=== PATIENT | male | born 1930 | race African-American/Black ===

== ENCOUNTER 2018-03-29 15:56 | Inpatient (IN) | payer MEDICARE, MEDICAID, OTHER ==
[2018-03-29 17:03] LABS: WHITE BLOOD COUNT 10.5 10^3/ul (4.8-10.8)
[2018-03-29 17:03] LABS: ABNORMAL IP MESSAGE 1; MEAN CORPUSCULAR HEMOGLOBIN 21.6 pg (29.0-33.0); MEAN CORPUSCULAR HGB CONC 29.5 g/dl (32.0-37.0); MEAN CORPUSCULAR VOLUME 73.2 fl (82.0-101.0); PLATELET COUNT 112 10^3/UL (140-415); POSITIVE DIFF @See below; RED BLOOD COUNT 2.87 10^6/ul (4.70-6.10); RED CELL DISTRIBUTION WIDTH 17.6 % (11.5-14.5)
[2018-03-29 17:07] LABS: ADD MAN DIFF? YES; HEMOGLOBIN 6.2 g/dl (14.0-18.0); PATH REVIEW? YES
[2018-03-29] MEDS: SODIUM CHLORIDE 0.9% 1L BAG IV* (17:07)
[2018-03-29] MEDS: CEFEPIME 2GM/50 ML (PMX) 50 ML IVPB (17:07)
[2018-03-29 17:17] LABS: INR 1.23; PROTIME 15.7 Sec (11.9-14.9); PT RATIO 1.2
[2018-03-29 17:18] LABS: PARTIAL THROMBOPLASTIN TIME 43.9 Sec (25.0-35.0)
[2018-03-29 17:24] LABS: ALANINE AMINOTRANSFERASE 22 IU/L (13-69); ALBUMIN 3.6 g/dl (3.3-4.9); ALBUMIN/GLOBULIN RATIO 1.05; ALKALINE PHOSPHATASE 97 IU/L (42-121); AMYLASE 43 U/L (11-123); ANION GAP 14 (8-16); ASPARTATE AMINO TRANSFERASE 28 IU/L (15-46); BILIRUBIN,INDIRECT 0.5 mg/dl (0-1.1); BILIRUBIN,TOTAL 0.5 mg/dl (0.2-1.3); BLOOD UREA NITROGEN 35 mg/dl (7-20); CALCIUM 8.6 mg/dl (8.4-10.2); CARBON DIOXIDE 23 mmol/L (21-31); CHLORIDE 110 mmol/L (97-110); CREATININE 2.13 mg/dl (0.61-1.24); GLUCOSE 152 mg/dl (70-220); LIPASE 41 U/L (23-300); POTASSIUM 4.1 mmol/L (3.5-5.1); SODIUM 143 mmol/L (135-144)
[2018-03-29 17:35] LABS: B-TYPE NATRIURETIC PEPTIDE 10600 PG/ML (0-450)
[2018-03-29 17:39] LABS: ADD UMIC YES; TROPONIN-I 0.553 ng/ml (0.000-0.120); UR ASCORBIC ACID NEGATIVE (NEGATIVE); UR BACTERIA MANY /HPF (NONE SEEN); UR BILIRUBIN (Dip) NEGATIVE (NEGATIVE); UR BLOOD (Dip) 2+ mg/dL (NEGATIVE); UR CLARITY CLOUDY (CLEAR); UR COLOR YELLOW (YELLOW); UR GLUCOSE (Dip) NEGATIVE (NEGATIVE); UR KETONES (Dip) NEGATIVE (NEGATIVE); UR LEUKOCYTE ESTERASE (Dip) 3+ Leu/ul (NEGATIVE); UR MUCUS FEW /HPF (NONE SEEN); UR NITRITE (Dip) POSITIVE (NEGATIVE); UR RBC 10 /HPF (0-5); UR SPECIFIC GRAVITY (Dip) 1.014 (1.003-1.030); UR TOTAL PROTEIN (Dip) 2+ mg/dl (NEGATIVE); UR UROBILINOGEN (Dip) NEGATIVE (NEGATIVE); UR WBC > 182 /HPF (0-5)
[2018-03-29 17:40] LABS: LACTIC ACID 2.5 mmol/L (0.5-2.0)
[2018-03-29 17:44] LABS: ANISOCYTOSIS 1+ (0-0); BAND NEUTROPHILS #M 0.7 10^3/ul (0.0-0.6); BAND NEUTROPHILS % (M) 7 % (0-4); LYMPHOCYTES #M 1.6 10^3/ul (0.8-2.9); LYMPHOCYTES % (M) 16 % (15-51); MICROCYTOSIS 1+ (0-0); MONOCYTE #M 0.3 10^3/ul (0.3-0.9); MONOCYTES % (M) 3 % (0-11); PLATELET ESTIMATE DECREASED; POIKILOCYTOSIS 2+ (0-0); POLYCHROMASIA 3+ (0-0); SEG NEUT #M 7.8 10^3/ul (1.6-7.5); SEGMENTED NEUTROPHILS (M) % 74 % (39-77); SMUDGE%M 2 % (0-0)
[2018-03-29] MEDS: VANCOMYCIN 1 GM (PMX) 250 ML IVPB (17:45)
[2018-03-29 17:52] LABS: IRON 24 ug/dl (35-150)
[2018-03-29 18:00] LABS: LACTATE DEHYDROGENASE 644 IU/L (313-618)
[2018-03-29 18:01] LABS: % IRON SATURATION 7 % SAT (22-52); TOTAL IRON BINDING CAPACITY 337 ug/dl (241-421)
[2018-03-29] MEDS: FUROSEMIDE 40 MG INJ IV (18:14)
[2018-03-29 18:37] LABS: FERRITIN 52.2 ng/ml (11.1-264.0)
[2018-03-29] MEDS: ALBUTEROL 0.083% (NEB) 2.5 MG/3 ML AMP NEB ×2 (18:52→19:48)
[2018-03-29] MEDS: IPRATROPIUM (NEB) 0.5 MG/2.5 ML AMP NEB ×2 (18:52→19:48)
[2018-03-29] MEDS ORDERED: ONDANSETRON 4 MG INJ IV ×2 (19:00→19:30)
[2018-03-29] MEDS ORDERED: ACETAMINOPHEN 325 MG TAB PO ×2 (19:00→19:30)
[2018-03-29 19:26] LABS: LACTIC ACID 1.6 mmol/L (0.5-2.0)
[2018-03-29] MEDS ORDERED: BISACODYL (EC) 5 MG TAB PO (19:30)
[2018-03-29] MEDS ORDERED: NACL 0.9% 3 ML SYG IV (19:30)
[2018-03-29] MEDS ORDERED: ACETAMINOPHEN 650 MG SUPP PR (19:30)
[2018-03-29] MEDS ORDERED: DOCUSATE SODIUM 100 MG CAP PO (19:30)
[2018-03-29] MEDS ORDERED: MAGNESIUM HYDROXIDE 30ML CUP PO (19:30)
[2018-03-29] MEDS: ACETAMINOPHEN 500 MG TAB PO (19:35)
[2018-03-29] MEDS: IBUPROFEN 800 MG TAB PO (19:35)
[2018-03-29] MEDS: DIPHENHYDRAMINE 50 MG INJ IV (19:58)
[2018-03-29] MEDS: LORAZEPAM 2 MG INJ IV (20:19)
[2018-03-29 20:29] LABS: CREATINE KINASE 164 IU/L (23-200)
[2018-03-29] MEDS: LABETALOL HCL 20MG INJ IV (20:30)
[2018-03-29 20:36] LABS: IRON 20 ug/dl (35-150)
[2018-03-29 20:42] LABS: CK INDEX 0.6
[2018-03-29 20:45] LABS: % IRON SATURATION 6 % SAT (22-52); TOTAL IRON BINDING CAPACITY 338 ug/dl (241-421)
[2018-03-29 20:47] LABS: CK-MB 1.02 ng/ml (0.0-2.4); TROPONIN-I 0.536 ng/ml (0.000-0.120)
[2018-03-29] MEDS: PREGABALIN 75 MG CAP PO (21:00)
[2018-03-29 21:02] LABS: ADD UMIC YES; UR ASCORBIC ACID NEGATIVE (NEGATIVE); UR BACTERIA FEW /HPF (NONE SEEN); UR BILIRUBIN (Dip) NEGATIVE (NEGATIVE); UR BLOOD (Dip) 1+ mg/dL (NEGATIVE); UR CLARITY CLEAR (CLEAR); UR COLOR STRAW (YELLOW); UR GLUCOSE (Dip) NEGATIVE (NEGATIVE); UR KETONES (Dip) NEGATIVE (NEGATIVE); UR LEUKOCYTE ESTERASE (Dip) 2+ Leu/ul (NEGATIVE); UR NITRITE (Dip) NEGATIVE (NEGATIVE); UR RBC 3 /HPF (0-5); UR SPECIFIC GRAVITY (Dip) 1.006 (1.003-1.030); UR TOTAL PROTEIN (Dip) NEGATIVE (NEGATIVE); UR UROBILINOGEN (Dip) NEGATIVE (NEGATIVE); UR WBC 54 /HPF (0-5)
[2018-03-29 21:17] LABS: FERRITIN 53.7 ng/ml (11.1-264.0)
[2018-03-29 21:49] LABS: LACTIC ACID 5.7 mmol/L (0.5-2.0)
[2018-03-29] MEDS: SOD CHLORIDE 0.45% 1,000 ML IV (22:58)
[2018-03-29] MEDS: PIPER-TAZO 3.375 GM IV (PMX) 100 ML IVPB (22:58)
[2018-03-29 23:41] LABS: POST-TRANSFUSION BILIRUBIN 0.6 mg/dl
[2018-03-29 23:41] LABS: PRETRANSFUSION BILIRUBIN 0.5 mg/dl
[2018-03-29] MEDS: ATORVASTATIN 40 MG TAB PO (23:52)
[2018-03-30 00:04] LABS: LACTIC ACID 1.6 mmol/L (0.5-2.0)
[2018-03-30] MEDS: RANOLAZINE (SR) 500 MG TAB PO ×3 (01:03→21:38)
[2018-03-30 02:13] LABS: CREATINE KINASE 237 IU/L (23-200)
[2018-03-30 02:14] LABS: LACTIC ACID 1.4 mmol/L (0.5-2.0)
[2018-03-30 02:26] LABS: CK INDEX 3.6
[2018-03-30 02:49] LABS: CK-MB 8.64 ng/ml (0.0-2.4)
[2018-03-30 05:45] LABS: WHITE BLOOD COUNT 10.2 10^3/ul (4.8-10.8)
[2018-03-30 05:45] LABS: ABNORMAL IP MESSAGE 1; HEMATOCRIT 18.1 % (42.0-52.0); MEAN CORPUSCULAR HEMOGLOBIN 21.7 pg (29.0-33.0); MEAN CORPUSCULAR HGB CONC 29.8 g/dl (32.0-37.0); MEAN CORPUSCULAR VOLUME 72.7 fl (82.0-101.0); MEAN PLATELET VOLUME 12.9 fl (7.4-10.4); PLATELET COUNT 102 10^3/UL (140-415); POSITIVE DIFF @See below; RED BLOOD COUNT 2.49 10^6/ul (4.70-6.10); RED CELL DISTRIBUTION WIDTH 17.6 % (11.5-14.5)
[2018-03-30] MEDS: PANTOPRAZOLE 40 MG INJ IV (05:46)
[2018-03-30] MEDS: PIPER-TAZO 3.375 GM IV (PMX) 100 ML IVPB ×3 (05:46→21:38)
[2018-03-30 05:51] LABS: ADD MAN DIFF? YES; HEMOGLOBIN 5.4 g/dl (14.0-18.0)
[2018-03-30 05:59] LABS: ALANINE AMINOTRANSFERASE 19 IU/L (13-69); ALBUMIN 3.1 g/dl (3.3-4.9); ALKALINE PHOSPHATASE 80 IU/L (42-121); ANION GAP 15 (8-16); ASPARTATE AMINO TRANSFERASE 43 IU/L (15-46); BILIRUBIN,INDIRECT 0.4 mg/dl (0-1.1); BILIRUBIN,TOTAL 0.4 mg/dl (0.2-1.3); BLOOD UREA NITROGEN 34 mg/dl (7-20); CALCIUM 7.8 mg/dl (8.4-10.2); CARBON DIOXIDE 24 mmol/L (21-31); CHLORIDE 110 mmol/L (97-110); CREATININE 2.16 mg/dl (0.61-1.24); GLUCOSE 161 mg/dl (70-220); POTASSIUM 4.1 mmol/L (3.5-5.1); SODIUM 145 mmol/L (135-144); TOTAL PROTEIN 6.2 g/dl (6.1-8.1)
[2018-03-30 06:02] LABS: CHOLESTEROL 68 mg/dl (100-200)
[2018-03-30 06:02] LABS: HDL CHOLESTEROL 17 mg/dl (31-75); LDL CHOLESTEROL,CALCULATED 14 mg/dl; TRIGLYCERIDES 183 mg/dl (0-149)
[2018-03-30] MEDS: METHYLPREDNISOLONE 40 MG INJ IV (06:43)
[2018-03-30] MEDS: DIPHENHYDRAMINE 50 MG INJ IV (06:43)
[2018-03-30] MEDS: ACETAMINOPHEN 325 MG TAB PO (06:44)
[2018-03-30 07:51] LABS: IMMEDIATE SPIN CROSSMATCH 1 4
[2018-03-30 07:55] LABS: ANISOCYTOSIS 2+ (0-0); BAND NEUTROPHILS #M 1.2 10^3/ul (0.0-0.6); BAND NEUTROPHILS % (M) 12 % (0-4); BASOPHIL #M 0.1 10^3/ul (0.0-0.0); BASOPHILS % (M) 1 % (0-2); LYMPHOCYTES #M 1.5 10^3/ul (0.8-2.9); LYMPHOCYTES % (M) 15 % (15-51); MICROCYTOSIS 2+ (0-0); MONOCYTE #M 0.1 10^3/ul (0.3-0.9); MONOCYTES % (M) 1 % (0-11); PLATELET ESTIMATE DECREASED; POIKILOCYTOSIS 3+ (0-0); POLYCHROMASIA 3+ (0-0); SEG NEUT #M 7.4 10^3/ul (1.6-7.5); SEGMENTED NEUTROPHILS (M) % 71 % (39-77); SMUDGE%M 2 % (0-0)
[2018-03-30] MEDS: PREGABALIN 75 MG CAP PO ×2 (08:50→21:38)
[2018-03-30] MEDS: DUTASTERIDE 0.5 MG CAP PO (08:50)
[2018-03-30] MEDS: CLOPIDOGREL 75 MG TAB PO (08:50)
[2018-03-30] MEDS: METOPROLOL (XL) 100 MG TAB PO (08:51)
[2018-03-30] MEDS ORDERED: GLUCAGON 1 MG INJ IM (10:30)
[2018-03-30] MEDS ORDERED: GLUCOSE GEL 15 GRAM TUBE PO ×2 (10:30)
[2018-03-30] MEDS ORDERED: DEXTROSE 50% 50 ML SYRINGE IV ×2 (10:30)
[2018-03-30] MEDS ORDERED: GLUCOSE GEL 15 GRAM TUBE BUCCAL (10:30)
[2018-03-30] MEDS: INSULIN ASPART [NOVOLOG] 3 ML PEN SC ×3 (13:24→21:42)
[2018-03-30 16:02] LABS: HEMATOCRIT 24.2 % (42.0-52.0); HEMOGLOBIN 7.6 g/dl (14.0-18.0)
[2018-03-30 16:32] LABS: CK-MB 6.95 ng/ml (0.0-2.4)
[2018-03-30 16:44] LABS: CK INDEX 4.3; CREATINE KINASE 162 IU/L (23-200)
[2018-03-30 19:18] LABS: OCCULT BLOOD STOOL NEGATIVE (NEGATIVE)
[2018-03-30] MEDS: SOD CHLORIDE 0.45% 1,000 ML IV (19:46)
[2018-03-30] MEDS: ATORVASTATIN 40 MG TAB PO (21:38)
[2018-03-31] MEDS: ACCU-CHEK XX (02:29)
[2018-03-31 05:36] LABS: ADD MAN DIFF? NO
[2018-03-31 05:40] LABS: ABNORMAL IP MESSAGE 1; BASOPHILS % 0.1 % (0.0-2.0); HEMATOCRIT 24.6 % (42.0-52.0); HEMOGLOBIN 7.8 g/dl (14.0-18.0); LYMPHOCYTES # 1.3 10^3/ul (0.8-2.9); LYMPHOCYTES % 11.2 % (15.0-51.0); MEAN CORPUSCULAR HEMOGLOBIN 23.6 pg (29.0-33.0); MEAN CORPUSCULAR HGB CONC 31.7 g/dl (32.0-37.0); MEAN CORPUSCULAR VOLUME 74.5 fl (82.0-101.0); MEAN PLATELET VOLUME 12.9 fl (7.4-10.4); MONOCYTE # 0.9 10^3/ul (0.3-0.9); MONOCYTES % 7.5 % (0.0-11.0); NEUTROPHIL # 9.3 10^3/ul (1.6-7.5); NEUTROPHILS % 78.2 % (39.0-77.0); NUCLEATED RED BLOOD CELLS% 0.2 /100WBC (0.0-0.0); PLATELET COUNT 120 10^3/UL (140-415); POSITIVE DIFF @See below; RED CELL DISTRIBUTION WIDTH 19.1 % (11.5-14.5)
[2018-03-31 05:40] LABS: WHITE BLOOD COUNT 11.9 10^3/ul (4.8-10.8)
[2018-03-31 05:42] LABS: RETICULOCYTE RBC 3.27
[2018-03-31 05:42] LABS: RETICULOCYTE COUNT # 0.011 X10^6 (0.020-0.110); RETICULOCYTE COUNT % 0.3 % (0.5-1.5)
[2018-03-31] MEDS: PANTOPRAZOLE 40 MG INJ IV ×2 (06:04→17:24)
[2018-03-31] MEDS: PIPER-TAZO 3.375 GM IV (PMX) 100 ML IVPB ×3 (06:04→21:17)
[2018-03-31 06:14] LABS: PHOSPHORUS 3.5 mg/dl (2.5-4.9)
[2018-03-31 06:14] LABS: MAGNESIUM 2.6 mg/dl (1.7-2.5)
[2018-03-31 06:15] LABS: ANION GAP 13 (8-16); BLOOD UREA NITROGEN 38 mg/dl (7-20); CARBON DIOXIDE 19 mmol/L (21-31); CHLORIDE 115 mmol/L (97-110); CREATININE 1.65 mg/dl (0.61-1.24); GLUCOSE 164 mg/dl (70-220); POTASSIUM 4.2 mmol/L (3.5-5.1); SODIUM 143 mmol/L (135-144)
[2018-03-31 06:33] LABS: IRON 33 ug/dl (35-150)
[2018-03-31 06:40] LABS: CK INDEX 3.6; CREATINE KINASE 92 IU/L (23-200)
[2018-03-31 06:42] LABS: % IRON SATURATION 10 % SAT (22-52); TOTAL IRON BINDING CAPACITY 318 ug/dl (241-421)
[2018-03-31 06:43] LABS: CK-MB 3.31 ng/ml (0.0-2.4)
[2018-03-31 06:57] LABS: FERRITIN 63.5 ng/ml (11.1-264.0)
[2018-03-31 07:27] LABS: FOLATE 14.3 ng/ml (2.8-20.0)
[2018-03-31] MEDS: METOPROLOL (XL) 100 MG TAB PO (09:45)
[2018-03-31] MEDS: DUTASTERIDE 0.5 MG CAP PO (09:45)
[2018-03-31] MEDS: PREGABALIN 75 MG CAP PO ×2 (09:45→21:17)
[2018-03-31] MEDS: RANOLAZINE (SR) 500 MG TAB PO ×2 (09:46→21:17)
[2018-03-31] MEDS: INSULIN ASPART [NOVOLOG] 3 ML PEN SC ×4 (09:47→21:00)
[2018-03-31] MEDS: SOD CHLORIDE 0.45% 1,000 ML IV (10:05)
[2018-03-31 17:13] LABS: TRANSFERRIN 218 mg/dL (188-341)
[2018-03-31] MEDS: SOD FERRIC GLUC COMPLX 125 MG in SOD CHLORIDE 0.9% 100 ML IVPB (17:24)
[2018-03-31 17:51] LABS: THYROID STIMULATING HORMONE 0.296 MIU/L (0.465-4.680)
[2018-03-31 18:39] LABS: HAAIG REFLEX REFLEX FILED
[2018-03-31 19:35] LABS: HEPATITIS B SURFACE ANTIGEN NEGATIVE (NEGATIVE)
[2018-03-31 19:53] LABS: HEPATITIS B CORE ANTIBODY REACTIVE (NEGATIVE); HEPATITIS C VIRAL ANTIBODY NEGATIVE (NEGATIVE)
[2018-03-31 19:57] LABS: HIV 1&2 ANTIBODY NEGATIVE (NEGATIVE)
[2018-03-31] MEDS: ATORVASTATIN 40 MG TAB PO (21:17)
[2018-04-01] MEDS: ACCU-CHEK XX (02:00)
[2018-04-01] MEDS: PANTOPRAZOLE 40 MG INJ IV ×2 (05:34→17:11)
[2018-04-01] MEDS: PIPER-TAZO 3.375 GM IV (PMX) 100 ML IVPB ×2 (05:35→13:52)
[2018-04-01 05:55] LABS: ABNORMAL IP MESSAGE 1; HEMATOCRIT 27.2 % (42.0-52.0); HEMOGLOBIN 8.4 g/dl (14.0-18.0); MEAN CORPUSCULAR HEMOGLOBIN 23.6 pg (29.0-33.0); MEAN CORPUSCULAR HGB CONC 30.9 g/dl (32.0-37.0); MEAN CORPUSCULAR VOLUME 76.4 fl (82.0-101.0); MEAN PLATELET VOLUME 12.1 fl (7.4-10.4); NUCLEATED RED BLOOD CELLS% 0.5 /100WBC (0.0-0.0); PLATELET COUNT 159 10^3/UL (140-415); POSITIVE DIFF @See below; RED BLOOD COUNT 3.56 10^6/ul (4.70-6.10); RED CELL DISTRIBUTION WIDTH 19.6 % (11.5-14.5)
[2018-04-01 05:55] LABS: WHITE BLOOD COUNT 13.1 10^3/ul (4.8-10.8)
[2018-04-01 05:58] LABS: ADD MAN DIFF? YES
[2018-04-01 06:15] LABS: PHOSPHORUS 3.2 mg/dl (2.5-4.9)
[2018-04-01 06:15] LABS: ANION GAP 9 (8-16); BLOOD UREA NITROGEN 32 mg/dl (7-20); CALCIUM 8.3 mg/dl (8.4-10.2); CARBON DIOXIDE 24 mmol/L (21-31); CHLORIDE 115 mmol/L (97-110); GLUCOSE 121 mg/dl (70-220); MAGNESIUM 2.6 mg/dl (1.7-2.5); POTASSIUM 4.4 mmol/L (3.5-5.1); SODIUM 144 mmol/L (135-144)
[2018-04-01 07:10] LABS: ANISOCYTOSIS 1+ (0-0); BAND NEUTROPHILS #M 0.9 10^3/ul (0.0-0.6); BAND NEUTROPHILS % (M) 7 % (0-4); BURR CELLS 1+ (0-0); EOSINOPHILS % (M) 4 % (0-7); ERYTHROBLAST% (NRBC) (M) 3 % (0-0); GIANT THROMBO% (M) 1 % (0-0); LYMPHOCYTES #M 2.4 10^3/ul (0.8-2.9); LYMPHOCYTES % (M) 19 % (15-51); MICROCYTOSIS 1+ (0-0); MONOCYTES % (M) 16 % (0-11); MYELOCYTES #M 0.2 10^3/ul (0.0-0.0); MYELOCYTES % (M) 2 % (0-0); OVALOCYTES 1+ (0-0); PLATELET ESTIMATE NORMAL; POIKILOCYTOSIS 3+ (0-0); POLYCHROMASIA 1+ (0-0); SEG NEUT #M 6.9 10^3/ul (1.6-7.5); SEGMENTED NEUTROPHILS (M) % 52 % (39-77); SPHEROCYTES 1+ (0-0)
[2018-04-01] MEDS: INSULIN ASPART [NOVOLOG] 3 ML PEN SC ×4 (07:35→20:59)
[2018-04-01] MEDS: RANOLAZINE (SR) 500 MG TAB PO ×2 (08:09→20:57)
[2018-04-01] MEDS: METOPROLOL (XL) 100 MG TAB PO (08:09)
[2018-04-01] MEDS: DUTASTERIDE 0.5 MG CAP PO (08:09)
[2018-04-01] MEDS: PREGABALIN 75 MG CAP PO ×2 (08:09→20:56)
[2018-04-01] MEDS: CEFTRIAXONE 1 GM/50 ML (PMX) 50 ML IVPB (16:10)
[2018-04-01] MEDS: SOD FERRIC GLUC COMPLX 125 MG in SOD CHLORIDE 0.9% 100 ML IVPB (17:11)
[2018-04-01 17:36] LABS: HAPTOGLOBIN 324 mg/dL (43-212)
[2018-04-01] MEDS: SOD CHLORIDE 0.45% 1,000 ML IV (17:56)
[2018-04-01] MEDS: ATORVASTATIN 40 MG TAB PO (20:57)
[2018-04-02] MEDS: ACCU-CHEK XX (02:00)
[2018-04-02 05:11] LABS: PROTEIN, TOTAL 6.2 g/dL (6.1-8.1)
[2018-04-02] MEDS: PANTOPRAZOLE 40 MG INJ IV ×2 (05:26→17:07)
[2018-04-02] MEDS: INSULIN ASPART [NOVOLOG] 3 ML PEN SC ×4 (07:55→20:48)
[2018-04-02 08:18] LABS: ADD MAN DIFF? NO
[2018-04-02 08:25] LABS: ABNORMAL IP MESSAGE 1; BASOPHILS % 0.3 % (0.0-2.0); EOSINOPHILS # 0.2 10^3/ul (0.0-0.5); EOSINOPHILS % 1.8 % (0.0-7.0); HEMATOCRIT 27.3 % (42.0-52.0); HEMOGLOBIN 8.5 g/dl (14.0-18.0); LYMPHOCYTES # 1.9 10^3/ul (0.8-2.9); LYMPHOCYTES % 15.4 % (15.0-51.0); MEAN CORPUSCULAR HEMOGLOBIN 23.2 pg (29.0-33.0); MEAN CORPUSCULAR HGB CONC 31.1 g/dl (32.0-37.0); MEAN CORPUSCULAR VOLUME 74.6 fl (82.0-101.0); MEAN PLATELET VOLUME 12.1 fl (7.4-10.4); MONOCYTES % 8.3 % (0.0-11.0); NEUTROPHIL # 7.2 10^3/ul (1.6-7.5); NEUTROPHILS % 58.8 % (39.0-77.0); NUCLEATED RED BLOOD CELLS # 0.1 10^3/ul (0.0-0.0); NUCLEATED RED BLOOD CELLS% 0.7 /100WBC (0.0-0.0); PLATELET COUNT 183 10^3/UL (140-415); POSITIVE DIFF @See below; RED BLOOD COUNT 3.66 10^6/ul (4.70-6.10); RED CELL DISTRIBUTION WIDTH 19.7 % (11.5-14.5)
[2018-04-02 08:25] LABS: WHITE BLOOD COUNT 12.3 10^3/ul (4.8-10.8)
[2018-04-02 08:55] LABS: ALANINE AMINOTRANSFERASE 30 IU/L (13-69); ALBUMIN 3.1 g/dl (3.3-4.9); ALBUMIN/GLOBULIN RATIO 0.93; ALKALINE PHOSPHATASE 91 IU/L (42-121); ANION GAP 11 (8-16); ASPARTATE AMINO TRANSFERASE 22 IU/L (15-46); BILIRUBIN,INDIRECT 0.6 mg/dl (0-1.1); BILIRUBIN,TOTAL 0.6 mg/dl (0.2-1.3); BLOOD UREA NITROGEN 22 mg/dl (7-20); CALCIUM 8.2 mg/dl (8.4-10.2); CARBON DIOXIDE 23 mmol/L (21-31); CHLORIDE 112 mmol/L (97-110); CREATININE 1.31 mg/dl (0.61-1.24); GLUCOSE 107 mg/dl (70-220); POTASSIUM 3.3 mmol/L (3.5-5.1); SODIUM 143 mmol/L (135-144); TOTAL PROTEIN 6.4 g/dl (6.1-8.1)
[2018-04-02] MEDS: METOPROLOL (XL) 100 MG TAB PO (09:23)
[2018-04-02] MEDS: RANOLAZINE (SR) 500 MG TAB PO ×2 (09:26→20:44)
[2018-04-02] MEDS: PREGABALIN 75 MG CAP PO ×2 (09:28→20:45)
[2018-04-02] MEDS: DUTASTERIDE 0.5 MG CAP PO (09:28)
[2018-04-02 10:18] LABS: ANISOCYTOSIS 1+ (0-0); BAND NEUTROPHILS #M 0.2 10^3/ul (0.0-0.6); BAND NEUTROPHILS % (M) 2 % (0-4); BURR CELLS 1+ (0-0); EOSINOPHILS % (M) 3 % (0-7); GIANT THROMBO% (M) 1 % (0-0); HYPOCHROMASIA 1+ (0-0); LYMPHOCYTES #M 1.9 10^3/ul (0.8-2.9); LYMPHOCYTES % (M) 16 % (15-51); METAMYELOCYTES #M 0.1 10^3/ul (0.0-0.0); METAMYELOCYTES %M 1 % (0-0); MICROCYTOSIS 1+ (0-0); MONOCYTE #M 0.7 10^3/ul (0.3-0.9); MONOCYTES % (M) 6 % (0-11); MYELOCYTES #M 0.1 10^3/ul (0.0-0.0); MYELOCYTES % (M) 1 % (0-0); OVALOCYTES 1+ (0-0); PLATELET ESTIMATE NORMAL; POIKILOCYTOSIS 1+ (0-0); SEG NEUT #M 8.8 10^3/ul (1.6-7.5); SEGMENTED NEUTROPHILS (M) % 71 % (39-77); SMUDGE%M 5 % (0-0)
[2018-04-02 11:53] LABS: CREATINE KINASE 40 IU/L (23-200)
[2018-04-02 12:04] LABS: CK INDEX 3.5
[2018-04-02 12:12] LABS: TROPONIN-I 0.663 ng/ml (0.000-0.120)
[2018-04-02 12:41] LABS: HOMOCYSTEINE - CARDIOVASCULAR 15.5 umol/L (<11.4)
[2018-04-02] MEDS: POTASSIUM CHLORIDE (SR) 20 MEQ TAB PO (13:10)
[2018-04-02] MEDS: CEFTRIAXONE 1 GM/50 ML (PMX) 50 ML IVPB (14:56)
[2018-04-02] MEDS: SOD FERRIC GLUC COMPLX 125 MG in SOD CHLORIDE 0.9% 100 ML IVPB (17:07)
[2018-04-02] MEDS: SOD CHLORIDE 0.45% 1,000 ML IV (18:07)
[2018-04-02] MEDS: ATORVASTATIN 40 MG TAB PO (20:44)
[2018-04-02 22:33] LABS: ALPHA-1-GLOBULINS 0.5 g/dL (0.2-0.3); BETA 2 GLOBULINS 0.4 g/dL (0.2-0.5); BETA GLOBULINS 0.5 g/dL (0.4-0.6); GAMMA GLOBULINS 0.8 g/dL (0.8-1.7)
[2018-04-03] MEDS: ACCU-CHEK XX (02:00)
[2018-04-03] MEDS: PANTOPRAZOLE 40 MG INJ IV ×2 (06:08→18:34)
[2018-04-03 06:31] LABS: ABNORMAL IP MESSAGE 1; HEMATOCRIT 28.3 % (42.0-52.0); HEMOGLOBIN 8.7 g/dl (14.0-18.0); MEAN CORPUSCULAR HEMOGLOBIN 23.1 pg (29.0-33.0); MEAN CORPUSCULAR HGB CONC 30.7 g/dl (32.0-37.0); MEAN CORPUSCULAR VOLUME 75.3 fl (82.0-101.0); MEAN PLATELET VOLUME 12.4 fl (7.4-10.4); NUCLEATED RED BLOOD CELLS% 0.1 /100WBC (0.0-0.0); PLATELET COUNT 215 10^3/UL (140-415); POSITIVE DIFF @See below; RED BLOOD COUNT 3.76 10^6/ul (4.70-6.10)
[2018-04-03 06:31] LABS: WHITE BLOOD COUNT 15.1 10^3/ul (4.8-10.8)
[2018-04-03 06:59] LABS: ADD MAN DIFF? YES
[2018-04-03 07:01] LABS: ALANINE AMINOTRANSFERASE 28 IU/L (13-69); ALBUMIN 3.2 g/dl (3.3-4.9); ALBUMIN/GLOBULIN RATIO 0.94; ALKALINE PHOSPHATASE 91 IU/L (42-121); ANION GAP 18 (8-16); ASPARTATE AMINO TRANSFERASE 22 IU/L (15-46); BILIRUBIN,INDIRECT 0.6 mg/dl (0-1.1); BILIRUBIN,TOTAL 0.6 mg/dl (0.2-1.3); BLOOD UREA NITROGEN 18 mg/dl (7-20); CALCIUM 8.3 mg/dl (8.4-10.2); CARBON DIOXIDE 21 mmol/L (21-31); CHLORIDE 109 mmol/L (97-110); CREATININE 1.21 mg/dl (0.61-1.24); GLUCOSE 120 mg/dl (70-220); POTASSIUM 3.7 mmol/L (3.5-5.1); SODIUM 144 mmol/L (135-144); TOTAL PROTEIN 6.6 g/dl (6.1-8.1)
[2018-04-03] MEDS: INSULIN ASPART [NOVOLOG] 3 ML PEN SC ×4 (07:55→20:40)
[2018-04-03] MEDS: METOPROLOL (XL) 100 MG TAB PO (08:28)
[2018-04-03] MEDS: DUTASTERIDE 0.5 MG CAP PO (08:28)
[2018-04-03] MEDS: RANOLAZINE (SR) 500 MG TAB PO ×2 (08:28→20:36)
[2018-04-03] MEDS: PREGABALIN 75 MG CAP PO ×2 (08:28→20:36)
[2018-04-03 09:12] LABS: ANISOCYTOSIS 1+ (0-0); BAND NEUTROPHILS #M 0.3 10^3/ul (0.0-0.6); BAND NEUTROPHILS % (M) 2 % (0-4); EOSINOPHILS % (M) 2 % (0-7); ERYTHROBLAST% (NRBC) (M) 2 % (0-0); GIANT THROMBO% (M) 1 % (0-0); LYMPHOCYTES #M 2.2 10^3/ul (0.8-2.9); LYMPHOCYTES % (M) 15 % (15-51); METAMYELOCYTES #M 0.1 10^3/ul (0.0-0.0); METAMYELOCYTES %M 1 % (0-0); MICROCYTOSIS 1+ (0-0); MONOCYTES % (M) 7 % (0-11); MYELOCYTES #M 0.9 10^3/ul (0.0-0.0); MYELOCYTES % (M) 6 % (0-0); OVALOCYTES 1+ (0-0); PLATELET ESTIMATE NORMAL; POIKILOCYTOSIS 2+ (0-0); POLYCHROMASIA 1+ (0-0); SEG NEUT #M 10.2 10^3/ul (1.6-7.5); SEGMENTED NEUTROPHILS (M) % 67 % (39-77); SMUDGE%M 4 % (0-0)
[2018-04-03] MEDS: CEFTRIAXONE 1 GM/50 ML (PMX) 50 ML IVPB (14:16)
[2018-04-03] MEDS: LIDOCAINE 2% (SDV) 5 ML INJ (17:40)
[2018-04-03] MEDS: PROPOFOL 40 ML (17:40)
[2018-04-03] MEDS: SOD FERRIC GLUC COMPLX 125 MG in SOD CHLORIDE 0.9% 100 ML IVPB (18:33)
[2018-04-03] MEDS: SOD CHLORIDE 0.45% 1,000 ML IV (18:50)
[2018-04-03] MEDS: ATORVASTATIN 40 MG TAB PO (20:37)
[2018-04-04] MEDS: ACCU-CHEK XX ×2 (02:22→23:00)
[2018-04-04 02:48] LABS: ADD UMIC YES; UR ASCORBIC ACID NEGATIVE (NEGATIVE); UR BILIRUBIN (Dip) NEGATIVE (NEGATIVE); UR BLOOD (Dip) NEGATIVE (NEGATIVE); UR CLARITY CLEAR (CLEAR); UR COLOR YELLOW (YELLOW); UR GLUCOSE (Dip) NEGATIVE (NEGATIVE); UR KETONES (Dip) TRACE mg/dL (NEGATIVE); UR LEUKOCYTE ESTERASE (Dip) NEGATIVE Leu/ul (NEGATIVE); UR NITRITE (Dip) NEGATIVE (NEGATIVE); UR RBC 2 /HPF (0-5); UR SPECIFIC GRAVITY (Dip) 1.013 (1.003-1.030); UR TOTAL PROTEIN (Dip) 1+ mg/dl (NEGATIVE); UR UROBILINOGEN (Dip) NEGATIVE (NEGATIVE); UR WBC 4 /HPF (0-5)
[2018-04-04] MEDS: PANTOPRAZOLE 40 MG INJ IV ×2 (05:45→18:18)
[2018-04-04 07:03] LABS: ADD MAN DIFF? NO
[2018-04-04 07:18] LABS: WHITE BLOOD COUNT 14.5 10^3/ul (4.8-10.8)
[2018-04-04 07:18] LABS: ABNORMAL IP MESSAGE 1; BASOPHIL # 0.1 10^3/ul (0.0-0.1); BASOPHILS % 0.6 % (0.0-2.0); EOSINOPHILS # 0.3 10^3/ul (0.0-0.5); EOSINOPHILS % 2.1 % (0.0-7.0); HEMATOCRIT 29.5 % (42.0-52.0); LYMPHOCYTES # 2.2 10^3/ul (0.8-2.9); LYMPHOCYTES % 14.9 % (15.0-51.0); MEAN CORPUSCULAR HEMOGLOBIN 23.4 pg (29.0-33.0); MEAN CORPUSCULAR HGB CONC 30.5 g/dl (32.0-37.0); MEAN CORPUSCULAR VOLUME 76.6 fl (82.0-101.0); MEAN PLATELET VOLUME 11.6 fl (7.4-10.4); MONOCYTES % 7.1 % (0.0-11.0); NEUTROPHIL # 9.5 10^3/ul (1.6-7.5); NEUTROPHILS % 65.1 % (39.0-77.0); PLATELET COUNT 221 10^3/UL (140-415); POSITIVE DIFF @See below; RED BLOOD COUNT 3.85 10^6/ul (4.70-6.10)
[2018-04-04 07:43] LABS: ANION GAP 15 (8-16); BLOOD UREA NITROGEN 17 mg/dl (7-20); CALCIUM 8.2 mg/dl (8.4-10.2); CARBON DIOXIDE 22 mmol/L (21-31); CHLORIDE 110 mmol/L (97-110); CREATININE 1.22 mg/dl (0.61-1.24); GLUCOSE 122 mg/dl (70-220); POTASSIUM 3.9 mmol/L (3.5-5.1); SODIUM 143 mmol/L (135-144)
[2018-04-04] MEDS: INSULIN ASPART [NOVOLOG] 3 ML PEN SC ×4 (07:55→23:00)
[2018-04-04 09:41] LABS: ANISOCYTOSIS 1+ (0-0); BAND NEUTROPHILS #M 0.5 10^3/ul (0.0-0.6); BAND NEUTROPHILS % (M) 4 % (0-4); EOSINOPHILS % (M) 2 % (0-7); GIANT THROMBO% (M) 2 % (0-0); LYMPHOCYTES #M 2.4 10^3/ul (0.8-2.9); LYMPHOCYTES % (M) 17 % (15-51); METAMYELOCYTES #M 0.2 10^3/ul (0.0-0.0); METAMYELOCYTES %M 2 % (0-0); MONOCYTE #M 0.5 10^3/ul (0.3-0.9); MONOCYTES % (M) 4 % (0-11); MYELOCYTES #M 0.4 10^3/ul (0.0-0.0); MYELOCYTES % (M) 3 % (0-0); PLATELET ESTIMATE NORMAL; POIKILOCYTOSIS 2+ (0-0); POLYCHROMASIA 3+ (0-0); SEG NEUT #M 9.9 10^3/ul (1.6-7.5); SEGMENTED NEUTROPHILS (M) % 68 % (39-77); SMUDGE%M 1 % (0-0)
[2018-04-04] MEDS: DUTASTERIDE 0.5 MG CAP PO (09:44)
[2018-04-04] MEDS: RANOLAZINE (SR) 500 MG TAB PO ×2 (09:44→22:53)
[2018-04-04] MEDS: METOPROLOL (XL) 100 MG TAB PO (09:45)
[2018-04-04] MEDS: PREGABALIN 75 MG CAP PO ×2 (12:29→22:52)
[2018-04-04] MEDS: CEFTRIAXONE 1 GM/50 ML (PMX) 50 ML IVPB (14:16)
[2018-04-04] MEDS: SOD FERRIC GLUC COMPLX 125 MG in SOD CHLORIDE 0.9% 100 ML IVPB (17:25)
[2018-04-04] MEDS: SOD CHLORIDE 0.45% 1,000 ML IV (22:51)
[2018-04-04] MEDS: ATORVASTATIN 40 MG TAB PO (22:52)
[2018-04-05] MEDS: PANTOPRAZOLE 40 MG INJ IV ×2 (06:51→17:58)
[2018-04-05] MEDS: INSULIN ASPART [NOVOLOG] 3 ML PEN SC ×4 (07:41→21:00)
[2018-04-05] MEDS: METOPROLOL (XL) 100 MG TAB PO (08:35)
[2018-04-05] MEDS: DUTASTERIDE 0.5 MG CAP PO (08:35)
[2018-04-05] MEDS: PREGABALIN 75 MG CAP PO ×2 (08:35→21:38)
[2018-04-05] MEDS: RANOLAZINE (SR) 500 MG TAB PO ×2 (08:36→21:38)
[2018-04-05] MEDS: CEFTRIAXONE 1 GM/50 ML (PMX) 50 ML IVPB (14:06)
[2018-04-05] MEDS: SOD CHLORIDE 0.45% 1,000 ML IV (19:28)
[2018-04-05] MEDS: PEG/ELECTROLYTES 4L BTL PO (21:35)
[2018-04-05] MEDS: ATORVASTATIN 40 MG TAB PO (21:38)
[2018-04-05] MEDS: ACCU-CHEK XX (21:47)
[2018-04-06] MEDS ORDERED: PEG/ELECTROLYTES 4L BTL PO (02:30)
[2018-04-06] MEDS: PANTOPRAZOLE 40 MG INJ IV ×2 (06:45→18:00)
[2018-04-06 07:19] LABS: WHITE BLOOD COUNT 11.1 10^3/ul (4.8-10.8)
[2018-04-06 07:19] LABS: ABNORMAL IP MESSAGE 1; HEMATOCRIT 25.8 % (42.0-52.0); MEAN CORPUSCULAR VOLUME 77.2 fl (82.0-101.0); MEAN PLATELET VOLUME 12.1 fl (7.4-10.4); PLATELET COUNT 215 10^3/UL (140-415); POSITIVE DIFF @See below; RED BLOOD COUNT 3.34 10^6/ul (4.70-6.10)
[2018-04-06 07:28] LABS: ADD MAN DIFF? YES
[2018-04-06 07:50] LABS: ANION GAP 15 (8-16); BLOOD UREA NITROGEN 18 mg/dl (7-20); CARBON DIOXIDE 20 mmol/L (21-31); CHLORIDE 111 mmol/L (97-110); CREATININE 1.18 mg/dl (0.61-1.24); GLUCOSE 106 mg/dl (70-220); SODIUM 142 mmol/L (135-144)
[2018-04-06] MEDS: INSULIN ASPART [NOVOLOG] 3 ML PEN SC ×4 (07:55→20:58)
[2018-04-06 08:19] LABS: ANISOCYTOSIS 1+ (0-0); EOSINOPHILS % (M) 1 % (0-7); GIANT THROMBO% (M) 4 % (0-0); LYMPHOCYTES #M 1.5 10^3/ul (0.8-2.9); LYMPHOCYTES % (M) 14 % (15-51); MICROCYTOSIS 1+ (0-0); MONOCYTE #M 0.8 10^3/ul (0.3-0.9); MONOCYTES % (M) 8 % (0-11); MYELOCYTES #M 0.1 10^3/ul (0.0-0.0); MYELOCYTES % (M) 1 % (0-0); PLATELET ESTIMATE NORMAL; POIKILOCYTOSIS 1+ (0-0); POLYCHROMASIA 3+ (0-0); SEGMENTED NEUTROPHILS (M) % 76 % (39-77); SMUDGE%M 1 % (0-0)
[2018-04-06] MEDS: PREGABALIN 75 MG CAP PO ×2 (09:00→20:58)
[2018-04-06] MEDS: RANOLAZINE (SR) 500 MG TAB PO ×2 (09:00→20:58)
[2018-04-06] MEDS: DUTASTERIDE 0.5 MG CAP PO (09:00)
[2018-04-06] MEDS: METOPROLOL (XL) 100 MG TAB PO (09:00)
[2018-04-06] MEDS: SOD CHLORIDE 0.45% 1,000 ML IV ×2 (11:58→20:00)
[2018-04-06] MEDS: CEFTRIAXONE 1 GM/50 ML (PMX) 50 ML IVPB (16:16)
[2018-04-06] MEDS ORDERED: ONDANSETRON 4 MG INJ IV (18:00)
[2018-04-06] MEDS: ETOMIDATE 20 MG INJ (18:53)
[2018-04-06] MEDS: PROPOFOL 20 ML (18:53)
[2018-04-06] MEDS: LIDOCAINE 2% (SDV) 5 ML INJ (18:54)
[2018-04-06] MEDS: ATORVASTATIN 40 MG TAB PO (20:58)
[2018-04-07] MEDS: ACCU-CHEK XX (02:00)
[2018-04-07] MEDS: PANTOPRAZOLE 40 MG INJ IV ×2 (05:52→18:18)
[2018-04-07 07:39] LABS: ADD MAN DIFF? NO
[2018-04-07 07:46] LABS: ABNORMAL IP MESSAGE 1; BASOPHILS % 0.3 % (0.0-2.0); EOSINOPHILS # 0.1 10^3/ul (0.0-0.5); EOSINOPHILS % 0.8 % (0.0-7.0); HEMATOCRIT 29.2 % (42.0-52.0); HEMOGLOBIN 8.9 g/dl (14.0-18.0); LYMPHOCYTES # 1.3 10^3/ul (0.8-2.9); LYMPHOCYTES % 12.6 % (15.0-51.0); MEAN CORPUSCULAR HEMOGLOBIN 23.9 pg (29.0-33.0); MEAN CORPUSCULAR HGB CONC 30.5 g/dl (32.0-37.0); MEAN CORPUSCULAR VOLUME 78.3 fl (82.0-101.0); MONOCYTE # 0.8 10^3/ul (0.3-0.9); MONOCYTES % 7.6 % (0.0-11.0); NEUTROPHIL # 7.6 10^3/ul (1.6-7.5); NEUTROPHILS % 74.4 % (39.0-77.0); PLATELET COUNT 227 10^3/UL (140-415); POSITIVE DIFF @See below; RED BLOOD COUNT 3.73 10^6/ul (4.70-6.10); RED CELL DISTRIBUTION WIDTH 22.6 % (11.5-14.5)
[2018-04-07 07:46] LABS: WHITE BLOOD COUNT 10.2 10^3/ul (4.8-10.8)
[2018-04-07 07:54] LABS: ALANINE AMINOTRANSFERASE 24 IU/L (13-69); ALBUMIN/GLOBULIN RATIO 1.21; ALKALINE PHOSPHATASE 102 IU/L (42-121); ANION GAP 18 (8-16); ASPARTATE AMINO TRANSFERASE 23 IU/L (15-46); BILIRUBIN,INDIRECT 0.5 mg/dl (0-1.1); BILIRUBIN,TOTAL 0.5 mg/dl (0.2-1.3); BLOOD UREA NITROGEN 17 mg/dl (7-20); CALCIUM 8.8 mg/dl (8.4-10.2); CARBON DIOXIDE 21 mmol/L (21-31); CHLORIDE 107 mmol/L (97-110); CREATININE 1.11 mg/dl (0.61-1.24); GLUCOSE 111 mg/dl (70-220); POTASSIUM 3.9 mmol/L (3.5-5.1); SODIUM 142 mmol/L (135-144); TOTAL PROTEIN 7.3 g/dl (6.1-8.1)
[2018-04-07] MEDS: INSULIN ASPART [NOVOLOG] 3 ML PEN SC ×4 (07:55→21:00)
[2018-04-07 07:58] LABS: MAGNESIUM 2.3 mg/dl (1.7-2.5)
[2018-04-07 07:58] LABS: PHOSPHORUS 4.1 mg/dl (2.5-4.9)
[2018-04-07] MEDS: DUTASTERIDE 0.5 MG CAP PO (09:08)
[2018-04-07] MEDS: RANOLAZINE (SR) 500 MG TAB PO ×2 (09:08→21:41)
[2018-04-07] MEDS: PREGABALIN 75 MG CAP PO ×2 (09:08→21:41)
[2018-04-07] MEDS: METOPROLOL (XL) 100 MG TAB PO (09:09)
[2018-04-07] MEDS: CEFTRIAXONE 1 GM/50 ML (PMX) 50 ML IVPB (14:22)
[2018-04-07] MEDS: SOD CHLORIDE 0.45% 1,000 ML IV (18:18)
[2018-04-07] MEDS: ATORVASTATIN 40 MG TAB PO (21:41)
[2018-04-08] MEDS: ACCU-CHEK XX (02:00)
[2018-04-08] MEDS: PANTOPRAZOLE 40 MG INJ IV ×2 (05:35→17:28)
[2018-04-08] MEDS: INSULIN ASPART [NOVOLOG] 3 ML PEN SC ×4 (07:55→21:00)
[2018-04-08] MEDS: METOPROLOL (XL) 100 MG TAB PO (08:30)
[2018-04-08] MEDS: DUTASTERIDE 0.5 MG CAP PO (08:30)
[2018-04-08] MEDS: PREGABALIN 75 MG CAP PO ×2 (08:30→21:15)
[2018-04-08] MEDS: RANOLAZINE (SR) 500 MG TAB PO ×2 (08:30→21:15)
[2018-04-08] MEDS: CEFTRIAXONE 1 GM/50 ML (PMX) 50 ML IVPB (14:46)
[2018-04-08] MEDS: ASPIRIN (EC) 81 MG TAB PO (14:46)
[2018-04-08] MEDS: ATORVASTATIN 40 MG TAB PO (21:15)
[2018-04-09] MEDS: ACCU-CHEK XX ×2 (02:00→20:00)
[2018-04-09] MEDS: PANTOPRAZOLE 40 MG INJ IV ×2 (06:25→18:01)
[2018-04-09 06:41] LABS: ADD MAN DIFF? NO
[2018-04-09 06:47] LABS: ABNORMAL IP MESSAGE 1; BASOPHILS % 0.3 % (0.0-2.0); EOSINOPHILS # 0.1 10^3/ul (0.0-0.5); EOSINOPHILS % 1.5 % (0.0-7.0); HEMATOCRIT 28.3 % (42.0-52.0); HEMOGLOBIN 8.6 g/dl (14.0-18.0); LYMPHOCYTES # 1.9 10^3/ul (0.8-2.9); LYMPHOCYTES % 21.5 % (15.0-51.0); MEAN CORPUSCULAR HEMOGLOBIN 23.8 pg (29.0-33.0); MEAN CORPUSCULAR HGB CONC 30.4 g/dl (32.0-37.0); MEAN CORPUSCULAR VOLUME 78.2 fl (82.0-101.0); MEAN PLATELET VOLUME 11.1 fl (7.4-10.4); MONOCYTE # 0.7 10^3/ul (0.3-0.9); MONOCYTES % 8.1 % (0.0-11.0); NEUTROPHIL # 5.7 10^3/ul (1.6-7.5); NEUTROPHILS % 65.1 % (39.0-77.0); PLATELET COUNT 242 10^3/UL (140-415); POSITIVE DIFF @See below; RED BLOOD COUNT 3.62 10^6/ul (4.70-6.10); RED CELL DISTRIBUTION WIDTH 23.3 % (11.5-14.5)
[2018-04-09 06:47] LABS: WHITE BLOOD COUNT 8.8 10^3/ul (4.8-10.8)
[2018-04-09 07:10] LABS: MAGNESIUM 2.4 mg/dl (1.7-2.5)
[2018-04-09 07:10] LABS: PHOSPHORUS 4.1 mg/dl (2.5-4.9)
[2018-04-09 07:12] LABS: ANION GAP 19 (8-16); BLOOD UREA NITROGEN 20 mg/dl (7-20); CARBON DIOXIDE 22 mmol/L (21-31); CHLORIDE 106 mmol/L (97-110); CREATININE 1.26 mg/dl (0.61-1.24); GLUCOSE 109 mg/dl (70-220); POTASSIUM 4.1 mmol/L (3.5-5.1); SODIUM 143 mmol/L (135-144)
[2018-04-09] MEDS: INSULIN ASPART [NOVOLOG] 3 ML PEN SC ×4 (07:55→21:00)
[2018-04-09] MEDS: DUTASTERIDE 0.5 MG CAP PO (08:34)
[2018-04-09] MEDS: PREGABALIN 75 MG CAP PO ×2 (08:34→20:49)
[2018-04-09] MEDS: RANOLAZINE (SR) 500 MG TAB PO ×2 (08:34→20:49)
[2018-04-09] MEDS: METOPROLOL (XL) 100 MG TAB PO (08:34)
[2018-04-09] MEDS: CEFTRIAXONE 1 GM/50 ML (PMX) 50 ML IVPB (15:01)
[2018-04-09] MEDS: SOD CHLORIDE 0.9% 1,000 ML IV (16:51)
[2018-04-09] MEDS: ASPIRIN (EC) 81 MG TAB PO (16:51)
[2018-04-09] MEDS: CLOPIDOGREL 75 MG TAB PO (20:49)
[2018-04-09] MEDS: ATORVASTATIN 40 MG TAB PO (20:49)
[2018-04-09] MEDS ORDERED: DIPHENHYDRAMINE 50 MG CAP PO (21:00)
[2018-04-09] MEDS ORDERED: DIAZEPAM 5 MG TAB PO (21:00)
[2018-04-10 02:30] LABS: ANION GAP 14 (8-16); BLOOD UREA NITROGEN 21 mg/dl (7-20); CALCIUM 8.8 mg/dl (8.4-10.2); CARBON DIOXIDE 21 mmol/L (21-31); CHLORIDE 111 mmol/L (97-110); CREATININE 1.46 mg/dl (0.61-1.24); GLUCOSE 101 mg/dl (70-220); POTASSIUM 4.1 mmol/L (3.5-5.1); SODIUM 142 mmol/L (135-144)
[2018-04-10] MEDS: PANTOPRAZOLE 40 MG INJ IV (05:38)
[2018-04-10] MEDS: INSULIN ASPART [NOVOLOG] 3 ML PEN SC ×4 (07:55→21:27)
[2018-04-10 07:56] LABS: ADD MAN DIFF? NO
[2018-04-10 08:02] LABS: ABNORMAL IP MESSAGE 1; BASOPHIL # 0.1 10^3/ul (0.0-0.1); BASOPHILS % 0.7 % (0.0-2.0); EOSINOPHILS # 0.1 10^3/ul (0.0-0.5); EOSINOPHILS % 1.5 % (0.0-7.0); HEMATOCRIT 27.4 % (42.0-52.0); HEMOGLOBIN 8.3 g/dl (14.0-18.0); LYMPHOCYTES # 1.5 10^3/ul (0.8-2.9); LYMPHOCYTES % 19.9 % (15.0-51.0); MEAN CORPUSCULAR HEMOGLOBIN 23.8 pg (29.0-33.0); MEAN CORPUSCULAR HGB CONC 30.3 g/dl (32.0-37.0); MEAN CORPUSCULAR VOLUME 78.5 fl (82.0-101.0); MEAN PLATELET VOLUME 10.9 fl (7.4-10.4); MONOCYTE # 0.6 10^3/ul (0.3-0.9); MONOCYTES % 8.2 % (0.0-11.0); NEUTROPHILS % 66.8 % (39.0-77.0); PLATELET COUNT 237 10^3/UL (140-415); POSITIVE DIFF @See below; RED BLOOD COUNT 3.49 10^6/ul (4.70-6.10); RED CELL DISTRIBUTION WIDTH 23.5 % (11.5-14.5)
[2018-04-10 08:02] LABS: WHITE BLOOD COUNT 7.5 10^3/ul (4.8-10.8)
[2018-04-10 08:21] LABS: ANION GAP 17 (8-16); BLOOD UREA NITROGEN 19 mg/dl (7-20); CALCIUM 8.9 mg/dl (8.4-10.2); CARBON DIOXIDE 21 mmol/L (21-31); CHLORIDE 107 mmol/L (97-110); CREATININE 1.26 mg/dl (0.61-1.24); GLUCOSE 107 mg/dl (70-220); POTASSIUM 4.1 mmol/L (3.5-5.1); SODIUM 141 mmol/L (135-144)
[2018-04-10 08:33] LABS: INR 1.09; PROTIME 14.3 Sec (11.9-14.9); PT RATIO 1.1
[2018-04-10 08:34] LABS: PARTIAL THROMBOPLASTIN TIME 31.8 Sec (25.0-35.0)
[2018-04-10 08:55] LABS: IRON 40 ug/dl (35-150)
[2018-04-10 09:05] LABS: % IRON SATURATION 13 % SAT (22-52); TOTAL IRON BINDING CAPACITY 302 ug/dl (241-421)
[2018-04-10] MEDS: RANOLAZINE (SR) 500 MG TAB PO ×2 (09:41→21:22)
[2018-04-10] MEDS: PREGABALIN 75 MG CAP PO ×2 (09:42→21:22)
[2018-04-10] MEDS: METOPROLOL (XL) 100 MG TAB PO (09:42)
[2018-04-10] MEDS: ASPIRIN (EC) 81 MG TAB PO (09:42)
[2018-04-10] MEDS: DUTASTERIDE 0.5 MG CAP PO (09:42)
[2018-04-10] MEDS: SOD CHLORIDE 0.9% 1,000 ML IV (11:16)
[2018-04-10] MEDS: LUBIPROSTONE 24 MCG CAP PO ×2 (12:07→21:22)
[2018-04-10 12:18] LABS: ADD UMIC NO; UR ASCORBIC ACID NEGATIVE (NEGATIVE); UR BILIRUBIN (Dip) NEGATIVE (NEGATIVE); UR BLOOD (Dip) NEGATIVE (NEGATIVE); UR CLARITY CLEAR (CLEAR); UR COLOR YELLOW (YELLOW); UR GLUCOSE (Dip) NEGATIVE (NEGATIVE); UR KETONES (Dip) NEGATIVE (NEGATIVE); UR LEUKOCYTE ESTERASE (Dip) NEGATIVE Leu/ul (NEGATIVE); UR NITRITE (Dip) NEGATIVE (NEGATIVE); UR SPECIFIC GRAVITY (Dip) 1.009 (1.003-1.030); UR TOTAL PROTEIN (Dip) NEGATIVE (NEGATIVE); UR UROBILINOGEN (Dip) NEGATIVE (NEGATIVE)
[2018-04-10 12:26] LABS: SODIUM,URINE RANDOM 89 mmol/L (30-90)
[2018-04-10] MEDS: CEFTRIAXONE 1 GM/50 ML (PMX) 50 ML IVPB (16:01)
[2018-04-10] MEDS: SOD FERRIC GLUC COMPLX 125 MG in SOD CHLORIDE 0.9% 100 ML IVPB (17:05)
[2018-04-10] MEDS: FAMOTIDINE 20 MG TAB PO (17:14)
[2018-04-10] MEDS: ATORVASTATIN 40 MG TAB PO (21:22)
[2018-04-11] MEDS: ACCU-CHEK XX (02:23)
[2018-04-11] MEDS: SOD CHLORIDE 0.9% 1,000 ML IV ×2 (02:24→15:52)
[2018-04-11 07:13] LABS: ADD MAN DIFF? NO
[2018-04-11 07:17] LABS: ABNORMAL IP MESSAGE 1; BASOPHILS % 0.5 % (0.0-2.0); EOSINOPHILS # 0.1 10^3/ul (0.0-0.5); EOSINOPHILS % 1.4 % (0.0-7.0); HEMATOCRIT 27.6 % (42.0-52.0); HEMOGLOBIN 8.3 g/dl (14.0-18.0); LYMPHOCYTES # 1.7 10^3/ul (0.8-2.9); LYMPHOCYTES % 21.4 % (15.0-51.0); MEAN CORPUSCULAR HGB CONC 30.1 g/dl (32.0-37.0); MEAN CORPUSCULAR VOLUME 79.8 fl (82.0-101.0); MEAN PLATELET VOLUME 11.6 fl (7.4-10.4); MONOCYTE # 0.7 10^3/ul (0.3-0.9); MONOCYTES % 8.8 % (0.0-11.0); NEUTROPHIL # 5.1 10^3/ul (1.6-7.5); NEUTROPHILS % 65.9 % (39.0-77.0); PLATELET COUNT 243 10^3/UL (140-415); POSITIVE DIFF @See below; RED BLOOD COUNT 3.46 10^6/ul (4.70-6.10); RED CELL DISTRIBUTION WIDTH 23.4 % (11.5-14.5)
[2018-04-11 07:17] LABS: WHITE BLOOD COUNT 7.8 10^3/ul (4.8-10.8)
[2018-04-11] MEDS: INSULIN ASPART [NOVOLOG] 3 ML PEN SC ×4 (07:55→20:43)
[2018-04-11] MEDS: ASPIRIN (EC) 81 MG TAB PO (08:15)
[2018-04-11] MEDS: RANOLAZINE (SR) 500 MG TAB PO ×2 (08:15→20:42)
[2018-04-11] MEDS: FAMOTIDINE 20 MG TAB PO ×2 (08:15→20:42)
[2018-04-11] MEDS: DUTASTERIDE 0.5 MG CAP PO (08:15)
[2018-04-11] MEDS: LUBIPROSTONE 24 MCG CAP PO ×2 (08:15→20:42)
[2018-04-11] MEDS: CLOPIDOGREL 75 MG TAB PO (08:15)
[2018-04-11] MEDS: METOPROLOL (XL) 100 MG TAB PO (08:15)
[2018-04-11] MEDS: PREGABALIN 75 MG CAP PO ×2 (08:15→21:01)
[2018-04-11] MEDS: CEFTRIAXONE 1 GM/50 ML (PMX) 50 ML IVPB (14:31)
[2018-04-11] MEDS: SOD FERRIC GLUC COMPLX 125 MG in SOD CHLORIDE 0.9% 100 ML IVPB (17:05)
[2018-04-11] MEDS: ATORVASTATIN 40 MG TAB PO (20:42)
[2018-04-12] MEDS: SOD CHLORIDE 0.9% 1,000 ML IV ×2 (00:01→11:26)
[2018-04-12] MEDS: ACCU-CHEK XX (02:00)
[2018-04-12 07:31] LABS: ANION GAP 17 (8-16); BLOOD UREA NITROGEN 16 mg/dl (7-20); CALCIUM 8.7 mg/dl (8.4-10.2); CARBON DIOXIDE 22 mmol/L (21-31); CHLORIDE 108 mmol/L (97-110); CREATININE 1.05 mg/dl (0.61-1.24); GLUCOSE 100 mg/dl (70-220); POTASSIUM 4.1 mmol/L (3.5-5.1); SODIUM 143 mmol/L (135-144)
[2018-04-12] MEDS: INSULIN ASPART [NOVOLOG] 3 ML PEN SC ×3 (07:55→17:44)
[2018-04-12] MEDS: DUTASTERIDE 0.5 MG CAP PO (09:19)
[2018-04-12] MEDS: METOPROLOL (XL) 100 MG TAB PO (09:19)
[2018-04-12] MEDS: LUBIPROSTONE 24 MCG CAP PO (09:19)
[2018-04-12] MEDS: FAMOTIDINE 20 MG TAB PO (09:19)
[2018-04-12] MEDS: ASPIRIN (EC) 81 MG TAB PO (09:19)
[2018-04-12] MEDS: RANOLAZINE (SR) 500 MG TAB PO (09:19)
[2018-04-12] MEDS: CLOPIDOGREL 75 MG TAB PO (09:19)
[2018-04-12] MEDS: PREGABALIN 75 MG CAP PO (09:20)
[2018-04-12] MEDS: CEFTRIAXONE 1 GM/50 ML (PMX) 50 ML IVPB (15:06)
[2018-04-12] MEDS: SOD FERRIC GLUC COMPLX 125 MG in SOD CHLORIDE 0.9% 100 ML IVPB (17:00)
== END 2018-04-12 18:01 | disposition home or self-care (01) | DRG 871 ==
LOC: TEL 04-01 14:40 → E/R 15:56 → ICU 18:36
PROC: 0DB68ZX Excision of Stomach, Via Natural or Artificial Opening Endoscopic, Diagnostic (ICD-10-PCS; principal; 2018-04-03 17:00)
PROC: 0DJD8ZZ Inspection of Lower Intestinal Tract, Via Natural or Artificial Opening Endoscopic (ICD-10-PCS; 2018-04-03 17:00)
PROC: 30233N1 Transfusion of Nonautologous Red Blood Cells into Peripheral Vein, Percutaneous Approach (ICD-10-PCS; 2018-04-03 17:00)
DX: A41.9 Sepsis, unspecified organism (principal); J18.9 Pneumonia, unspecified organism; I21.4 Non-ST elevation (NSTEMI) myocardial infarction; N39.0 Urinary tract infection, site not specified; N17.9 Acute kidney failure, unspecified; E87.0 Hyperosmolality and hypernatremia; I13.0 Hypertensive heart and chronic kidney disease with heart failure and stage 1 through stage 4 chronic kidney disease, or unspecified chronic kidney disease; E11.22 Type 2 diabetes mellitus with diabetic chronic kidney disease; N18.9 Chronic kidney disease, unspecified; D64.9 Anemia, unspecified; I25.10 Atherosclerotic heart disease of native coronary artery without angina pectoris; Z95.1 Presence of aortocoronary bypass graft; E78.5 Hyperlipidemia, unspecified; N40.0 Benign prostatic hyperplasia without lower urinary tract symptoms; D69.6 Thrombocytopenia, unspecified; K29.70 Gastritis, unspecified, without bleeding; K44.9 Diaphragmatic hernia without obstruction or gangrene; I50.9 Heart failure, unspecified; E66.01 Morbid (severe) obesity due to excess calories; Z68.27 Body mass index [BMI] 27.0-27.9, adult; K64.9 Unspecified hemorrhoids; L91.8 Other hypertrophic disorders of the skin; K57.90 Diverticulosis of intestine, part unspecified, without perforation or abscess without bleeding; E87.6 Hypokalemia
CPT/HCPCS: 36415; 36430; 71045; 76705; 76775; 80048; 80053; 80061; 81001; 81003; 82150; 82270; 82550; 82553; 82607; 82728; 82746; 82962; 83010; 83036; 83090; 83540; 83605; 83615; 83690; 83735; 83880; 83921; 84100; 84155; 84165; 84300; 84443; 84466; 84484; 85014; 85018; 85025; 85045; 85610; 85730; 86078; 86703; 86704; 86709; 86803; 86850; 86900; 86901; 86920; 87040; 87081; 87086; 87340; 88305; 88312; 93005; 93306; 94640; 94664; 96374; 96375; 97164; 99291-25